=== PATIENT | male | born 2000 | race Caucasian/White ===

== ENCOUNTER → 2023-02-15 | Day surgery (SDC) | payer BC ==
[~2023-02-15] MED LIST: Rabies Vaccine Human 2.5 UNITS VIAL IM ONE
== END ==
LOC: CSHSDC/OP 08:35
PROVIDERS: ATTEND Emergency Medicine
DX: Z23 Encounter for immunization (principal)
CPT/HCPCS: 90471; 90675

== ENCOUNTER → 2023-02-22 | Day surgery (SDC) | payer BC | LOC: CSHSDC/OP 08:16 | PROVIDERS: ATTEND Emergency Medicine | DX: Z23 Encounter for immunization (principal) | CPT/HCPCS: 90675 ==